=== PATIENT | female | born 1985 | race Caucasian/White ===

== ENCOUNTER 2021-11-28 07:10 | Emergency (ER) | payer BC ==
[~2021-11-28] VITALS: Ht 157.5 cm; Wt 83.9 kg
[2021-11-28 07:20] VITALS: BP_SYST 139
[2021-11-28 07:57] LABS: BASOPHILS # (AUTO) 0.1 K/uL (0.0-0.2); BASOPHILS % (AUTO) 0.9 % (0.0-2.0); EOSINOPHILS # (AUTO) 0.2 K/uL (0.0-0.4); EOSINOPHILS % (AUTO) 1.8 % (0.0-4.0); HEMATOCRIT 39.5 % (36-48); HEMOGLOBIN 13.4 g/dL (12.0-16.0); LYMPHOCYTES # (AUTO) 1.7 K/uL (1.0-5.5); LYMPHOCYTES % (AUTO) 20.6 % (20.5-51.5); MEAN CORPUSCULAR HEMOGLOBIN 31 pg (27-31); MEAN CORPUSCULAR HGB CONC 34 % (32-36); MEAN CORPUSCULAR VOLUME 92 fL (79.0-98.0); MONOCYTES # (AUTO) 0.5 K/uL (0.0-1.0); NEUTROPHILS % (AUTO) 70.7 % (40.0-70.0); PLATELET COUNT (AUTO) 275 K/uL (130-430); RED BLOOD CELL COUNT(AUTO) 4.27 MIL/uL (4.2-6.2); RED CELL DISTRIBUTION WIDTH 13.4 % (9.0-15.0); WHITE BLOOD COUNT (AUTO) 8.5 K/uL (4.8-10.8)
[2021-11-28 08:13] LABS: ANION GAP 5 (5-15); CALCIUM 7.6 mg/dL (8.4-11.0); CHLORIDE 103 mmol/L (98-107); CREATININE 0.96 mg/dL (0.55-1.30); GLUCOSE 117 mg/dL (70-99); POTASSIUM 4.1 mmol/L (3.5-5.1); SODIUM SERUM 135 mmol/L (136-145); UREA NITROGEN, BLOOD 14 mg/dL (8-21)
[2021-11-28 08:19] LABS: GFR AFRICAN AMERICAN 86 mL/min (>90)
[2021-11-28 08:27] LABS: ALANINE AMINOTRANSFERASE 15 U/L (12-78); ALBUMIN 3.4 g/dL (3.4-4.8); ASPARTATE AMINOTRANSFERASE 17 U/L (10-37); TOTAL BILIRUBIN 0.3 mg/dL (0.0-1.0)
[2021-11-28] MEDS ORDERED: hydrALAZINE HCL 20 MG/ML VIAL IVP ONE (10:30)
[2021-11-28] MEDS ORDERED: ACETAMINOPHEN 500 MG TABLET PO ONE (11:15)
[2021-11-28 12:15] VITALS: BP_SYST 156
== END 2021-11-28 12:15 | disposition home or self-care (01) ==
LOC: SED 07:10
DX: M79.604 Pain in right leg (principal); M79.605 Pain in left leg; R60.0 Localized edema
CPT/HCPCS: 36415; 71045; 80053; 81025; 83880; 84484; 85025; 93005; 93970; 96374; 99285; J0360

== ENCOUNTER 2022-04-16 22:09 | Emergency (ER) | payer BC ==
[~2022-04-16] VITALS: Ht 172.7 cm; Wt 68.0 kg
[2022-04-16 22:20] VITALS: BP_SYST 162
--- NOTE | 2022-04-16 22:23 | NUR ---
Pt to bed 07. ER physician DANIEL notified. In C-spine precautions with hard C-collar in place.
--- NOTE | 2022-04-16 22:23 | NUR ---
Placed in room 07 . Placed on alarm security or surveillance monitor, blood pressure machine and pulse oximeter. To gown for exam. Side rails up. Report given to KEM DIGGS
--- NOTE | 2022-04-16 22:47 | NUR ---
Dr. Padilla at bedside with patient for evaluation.
[2022-04-16] MEDS ORDERED: NACL 0.9% 1,000 ML IV ONE (23:00)
[2022-04-16] MEDS ORDERED: ONDANSETRON HCL 4 MG/2 ML VIAL IVP ONE (23:00)
[2022-04-16] MEDS ORDERED: MORPHINE 2 MG/ML INJ. SYRINGE IVP ONE (23:00)
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
[2022-04-16 23:14] LABS: BASOPHILS # (AUTO) 0.1 K/uL (0.0-0.2); BASOPHILS % (AUTO) 0.6 % (0.0-2.0); EOSINOPHILS # (AUTO) 0.2 K/uL (0.0-0.4); EOSINOPHILS % (AUTO) 2.6 % (0.0-4.0); HEMATOCRIT 38.5 % (36-48); HEMOGLOBIN 13.2 g/dL (12.0-16.0); LYMPHOCYTES # (AUTO) 1.4 K/uL (1.0-5.5); LYMPHOCYTES % (AUTO) 14.9 % (20.5-51.5); MEAN CORPUSCULAR HEMOGLOBIN 32 pg (27-31); MEAN CORPUSCULAR HGB CONC 34 % (32-36); MEAN CORPUSCULAR VOLUME 93 fL (79.0-98.0); MONOCYTES # (AUTO) 0.8 K/uL (0.0-1.0); MONOCYTES % (AUTO) 8.1 % (1.7-9.3); NEUTROPHILS % (AUTO) 73.8 % (40.0-70.0); PLATELET COUNT (AUTO) 269 K/uL (130-430); RED BLOOD CELL COUNT(AUTO) 4.14 MIL/uL (4.2-6.2); RED CELL DISTRIBUTION WIDTH 13.4 % (9.0-15.0); WHITE BLOOD COUNT (AUTO) 9.5 K/uL (4.8-10.8)
--- NOTE | 2022-04-16 23:30 | NUR ---
Attempted to educate pt on reason for bedbound order. Pt increasingly got angry with staff because she was not able to ambulate due to MD order. Pt started cursing at staff stating for nurses who were in the room to assist with rolling her onto the bed barnes to get out of the room.
[2022-04-16 23:33] LABS: CALCIUM 8.1 mg/dL (8.4-11.0); CREATININE 1.18 mg/dL (0.55-1.30); POTASSIUM 3.7 mmol/L (3.5-5.1)
--- NOTE | 2022-04-16 23:40 | NUR ---
Pt ambulated to restroom with husbands assistance as reuqested by pt. MD reassesed patient and approved of ambulation with assistance.
[2022-04-16 23:43] LABS: ALBUMIN 3.9 g/dL (3.4-4.8); TOTAL BILIRUBIN 0.4 mg/dL (0.0-1.0)
[2022-04-16] MEDS ORDERED: HYDROcodone/ACETAMIN 5-325 MG TAB (NORCO/ VICODIN) PO ONE (23:45)
[2022-04-17] MEDS ORDERED: IBUP-1969 PO
[2022-04-17] MEDS ORDERED: ONDA-8 TL
[2022-04-17] MEDS ORDERED: LIDO1ADH71 TD
[2022-04-17] MEDS ORDERED: METH-634 PO (00:13)
[2022-04-17 00:16] VITALS: BP_SYST 162
--- NOTE | 2022-04-17 00:16 | NUR ---
Patient given written and verbal discharge instructions and verbalizes understanding. ER Dr. Padilla discussed with patient the results and treatment provided. Patient in stable condition. ID arm band removed. Rx of lidocaine patch, ibuprofen, zofran, given. Patient educated on pain management and to follow up with PMD. Pain Scale 3. Opportunity for questions provided and answered. Medication side effect fact sheet provided.
== END 2022-04-17 00:16 | disposition home or self-care (01) ==
LOC: SED 22:09
DX: S16.1XXA Strain of muscle, fascia and tendon at neck level, initial encounter (principal); Z79.899 Other long term (current) drug therapy; V49.40XA Driver injured in collision with unspecified motor vehicles in traffic accident, initial encounter; Y93.89 Activity, other specified; Y92.89 Other specified places as the place of occurrence of the external cause; Y99.8 Other external cause status
CPT/HCPCS: 99285; 70450; 71045; 80053; 84702; 85025; 36415; 72125; 76376; J2405; J2270